=== PATIENT | male | born 1985 | race Two or more races ===

== ENCOUNTER 2018-09-18 17:47 | Emergency (ER) | payer MEDICAID ==
[~2018-09-18] VITALS: Ht 185.4 cm; Wt 104.3 kg
[2018-09-18 18:03] VITALS: Ht 185.4 cm; Wt 104.3 kg
[2018-09-18 18:51] VITALS: BP 120/79
== END 2018-09-18 18:51 | disposition home or self-care (01) ==
LOC: ED 17:47
DX: Z76.0 Encounter for issue of repeat prescription (principal); F32.9 Major depressive disorder, single episode, unspecified